=== PATIENT | female | born 1980 | race Caucasian/White ===

== ENCOUNTER 2016-04-11 08:25 | Inpatient (IN) | payer BC ==
[2016-04-11] MEDS ORDERED: Dinoprostone* 10 MG VAG.SUPP VAGINAL ONE (09:40)
[2016-04-11 10:53] LABS: Hematocrit 36 % (35-47); Hemoglobin 11.7 g/dl (12.0-16.0); Mean Corpuscular HGB Conc 32 g/dl (31-36); Mean Corpuscular Hemoglobin 28 pg (27-31); Mean Corpuscular Volume 85 fL (80-97); Mean Platelet Volume 9 um3 (7.4-10.4); Red Blood Count 4.25 10^6/ul (4.0-5.4); Red Cell Distribution Width 15 % (10.5-15); White Blood Count 9.7 10^3/ul (3.5-10.8)
[2016-04-11 11:40] LABS: Albumin 3.1 g/dL (3.2-5.2); BUN/Creatinine Ratio 16.9 (8-20); Calcium 8.6 mg/dL (8.6-10.3); EGFR African American 109.7 (>60); EGFR Non-African American 85.3 (>60); Globulin 2.8 g/dL (2-4); Potassium 4.2 mmol/L (3.5-5.0); Total Bilirubin 0.3 mg/dL (0.2-1.0); Total Protein 5.9 g/dL (6.4-8.9); Uric Acid 5.7 mg/dL (2.3-6.6)
--- NOTE | 2016-04-11 17:11 | PTEDU ---
Patient Name: JUAN JOSE BARRIOS DENIS JUAN JOSE selected video: Never Ever Shake a Baby to view on 04/11/2016 at 5:10:21 PM from [facility] [id number]
[2016-04-11] MEDS: Labetalol TAB* 100 MG PO SCH (21:01)
[2016-04-12] MEDS: Levothyroxine TAB* 50 MCG TAB PO SCH (07:06)
[2016-04-12] MEDS: Labetalol TAB* 100 MG PO SCH ×2 (08:41→21:02)
[2016-04-12] MEDS ORDERED: Misoprostol TAB* 100 MCG PO SCH ×2 (09:00→13:00)
[2016-04-12] MEDS ORDERED: Misoprostol TAB* 100 MCG PO ONE (17:10)
[2016-04-12] MEDS ORDERED: Nalbuphine* 20 MG/ML 1 ML VIAL IV ONE (21:00)
[2016-04-12] MEDS ORDERED: Promethazine INJ(RESTRICTED)* 25 MG/ML 1 ML VIAL IV ONE (21:00)
[2016-04-12] MEDS: ValACYclovir (*) 500 MG TAB PO SCH (21:02)
[2016-04-13] MEDS: Levothyroxine TAB* 50 MCG TAB PO SCH (08:17)
[2016-04-13] MEDS: Labetalol TAB* 100 MG PO SCH ×2 (08:17→21:26)
[2016-04-13] MEDS ORDERED: Misoprostol TAB* 100 MCG PO ONE ×3 (09:18→18:00)
[2016-04-13] MEDS ORDERED: Misoprostol TAB* 100 MCG ONE (09:33)
[2016-04-13] MEDS: ValACYclovir (*) 500 MG TAB PO SCH (21:26)
[2016-04-13] MEDS ORDERED: Nalbuphine* 20 MG/ML 1 ML VIAL IV PRN (21:39)
[2016-04-13] MEDS ORDERED: Promethazine INJ(RESTRICTED)* 25 MG/ML 1 ML VIAL IV PRN (21:41)
[2016-04-14] MEDS: Levothyroxine TAB* 50 MCG TAB PO SCH (07:09)
[2016-04-14] MEDS ORDERED: Oxytocin in LR* 20 UNITS/1,000 ML BAG IVPB SCH (09:00)
[2016-04-14] MEDS ORDERED: Penicillin G Potassium IV* 5,000,000 UNITS in NS 0.9% 100 ML* 100 ML IVPB ONE (09:08)
[2016-04-14] MEDS: Labetalol TAB* 100 MG PO SCH ×2 (10:17→21:29)
[2016-04-14] MEDS ORDERED: Penicillin G Potassium IV* 2,500,000 UNITS in NS 0.9% 100 ML* 100 ML IVPB SCH (13:30)
[2016-04-14] MEDS: Penicillin G Potassium IV* 2,500,000 UNITS in NS 0.9% 100 ML* 100 ML IVPB SCH ×2 (19:47→21:28)
[2016-04-14] MEDS: ValACYclovir (*) 500 MG TAB PO SCH (21:29)
[2016-04-14] MEDS ORDERED: OBEPIDURAL* 250 ML ONE (21:40)
[2016-04-14] MEDS ORDERED: Sodium Citrate/Citric Acid* 15 ML UDC PO PRN (22:54)
[2016-04-14] MEDS ORDERED: EPHEDrine (Pressors)* 50 MG/ML VIAL IV PUSH PRN ×2 (22:54)
[2016-04-14] MEDS ORDERED: Famotidine TAB* 20 MG PO PRN (22:54)
[2016-04-14] MEDS ORDERED: Phenylephrine IV* 40 MCG/ML 10 ML SYRINGE IV PUSH PRN ×2 (22:54)
[2016-04-14] MEDS ORDERED: OBEPIDURAL* 250 ML EPIDURAL SCH (23:00)
[2016-04-15] MEDS: Penicillin G Potassium IV* 2,500,000 UNITS in NS 0.9% 100 ML* 100 ML IVPB SCH (01:29)
[2016-04-15] MEDS ORDERED: Dibucaine 1% 28.35 GM TUBE PR PRN (04:40)
[2016-04-15] MEDS ORDERED: Witch Hazel PAD* JAR TOPICAL PRN (04:40)
[2016-04-15] MEDS ORDERED: Glycerin ADULT SUPP PR PRN (04:40)
[2016-04-15] MEDS ORDERED: oxyCODONE/Acetamin 5/325 MG* TAB PO PRN (04:40)
[2016-04-15] MEDS ORDERED: Acetaminophen TAB* 325 MG PO PRN (04:40)
[2016-04-15] MEDS ORDERED: Oxytocin in LR* 20 UNITS/1,000 ML BAG IVPB SCH (05:00)
[2016-04-15] MEDS: Ibuprofen TAB* 600 MG PO PRN ×3 (08:04→21:19)
[2016-04-15] MEDS: Docusate CAP* 100 MG PO SCH ×3 (08:04→21:19)
[2016-04-15] MEDS: Labetalol TAB* 100 MG PO SCH ×2 (08:04→21:19)
[2016-04-15] MEDS: Levothyroxine TAB* 50 MCG TAB PO SCH (08:06)
[2016-04-16] MEDS: Ibuprofen TAB* 600 MG PO PRN ×3 (04:30→22:21)
[2016-04-16] MEDS: Levothyroxine TAB* 50 MCG TAB PO SCH (08:07)
[2016-04-16 08:45] LABS: Hematocrit 32 % (35-47); Hemoglobin 10.3 g/dl (12.0-16.0); Mean Corpuscular HGB Conc 33 g/dl (31-36); Mean Corpuscular Hemoglobin 28 pg (27-31); Mean Corpuscular Volume 86 fL (80-97); Mean Platelet Volume 8 um3 (7.4-10.4); Red Blood Count 3.68 10^6/ul (4.0-5.4); Red Cell Distribution Width 16 % (10.5-15); White Blood Count 15.3 10^3/ul (3.5-10.8)
[2016-04-16] MEDS ORDERED: Ferrous Gluconate TAB* 324 MG TAB PO SCH (09:00)
[2016-04-16] MEDS: Docusate CAP* 100 MG PO SCH ×3 (09:06→22:21)
[2016-04-16] MEDS: Labetalol TAB* 100 MG PO SCH ×2 (09:06→22:20)
[2016-04-16] MEDS ORDERED: Dibucaine 1% 28.35 GM TUBE ONE (16:35)
[2016-04-16] MEDS: Penicillin G Potassium IV* 2,500,000 UNITS in NS 0.9% 100 ML* 100 ML IVPB SCH ×2 (19:27→19:28)
[2016-04-16] MEDS: Simethicone TAB* 80 MG TAB.CHEW PO SCH (19:28)
[2016-04-17 08:05] VITALS: BP 126/84
[2016-04-17] MEDS: Docusate CAP* 100 MG PO SCH (08:14)
[2016-04-17] MEDS: Labetalol TAB* 100 MG PO SCH (08:14)
[2016-04-17] MEDS: Levothyroxine TAB* 50 MCG TAB PO SCH (08:14)
== END 2016-04-17 13:30 | disposition home or self-care (01) | DRG 560 ==
LOC: MCHOBOUT 08:25 → MCHOB 09:40
PROVIDERS: ADMIT Midwife; ATTEND Midwife
PROC: 10E0XZZ Delivery of Products of Conception, External Approach (ICD-10-PCS; principal; 2016-04-15)
PROC: 0HQ9XZZ Repair Perineum Skin, External Approach (ICD-10-PCS; 2016-04-15)
PROC: 3E033VJ Introduction of Other Hormone into Peripheral Vein, Percutaneous Approach (ICD-10-PCS; 2016-04-15)
DX: O10.92 Unspecified pre-existing hypertension complicating childbirth (principal); E03.9 Hypothyroidism, unspecified; O99.824 Streptococcus B carrier state complicating childbirth; O70.0 First degree perineal laceration during delivery; O99.284 Endocrine, nutritional and metabolic diseases complicating childbirth; Z3A.39 39 weeks gestation of pregnancy; Z37.0 Single live birth
CPT/HCPCS: 36415; 59200; 76815; 80053; 84550; 85025; 86850; 86900; 86901; 88307; A9270-GY; J2300; J2540; J2550; S0191

== ENCOUNTER 2019-05-15 18:22 | Inpatient (IN) | payer BC ==
[2019-05-15] MEDS ORDERED: Buffered Lidocaine 1% SYRIN* 1 ML/SYRINGE INTRADERM ONE (19:26)
[2019-05-15] MEDS ORDERED: Lactated Ringers 1000 ML Bag* 1,000 ML IV ONE (19:26)
[2019-05-15] MEDS ORDERED: Dinoprostone* 10 MG VAG.SUPP VAGINAL ONE (19:26)
[2019-05-15] MEDS ORDERED: Lactated Ringers 1000 ML Bag* 1,000 ML IV SCH (20:00)
[2019-05-15 20:43] LABS: Urine Benzodiazepine Screen None Detected (None Detect); Urine Opiates Screen None Detected (None Detect)
[2019-05-15] MEDS ORDERED: Penicillin G Potassium IV* 5,000,000 UNITS in NS 0.9% 100 ML* 100 ML IVPB ONE (21:38)
[2019-05-15] MEDS ORDERED: diPHENhydraMINE PO* 50 MG PO ONE (21:40)
--- NOTE | 2019-05-15 21:46 | HP ---
General Information - Reason for Visit Induction due to CHTN on medication - General Information Maternal Age: 39 Grav: 7 Para: 1 SAB: 5 IEA: 0 Estimated Due Date: 05/31/19 Determined By: LMP Gestational Age in Weeks/Days: 37.5 Maternal Blood Type and Rh: O Positive - Results this Serology/RPR Result: Non-Reactive Rubella Result: Immune HBsAg Result: Negative HIV Result: Negative GBS Culture Result: Positive Past Medical History Delivery History: Hx Uncomplicated Vaginal Delivery Pertinent Past Medical History: See Records - HTN, Antiphopholipid Ab , hormonal migraines Pertinent Past Surgical History: See Records Pertinent Family History: Non-Contributory - Antepartal Records Antepartal Records: Reviewed, Complicated by: - CHTN on labetalol - mildly elevated BPs, APA - on lovenox/heparin Review of Systems Constitutional: Comfortable CV Complaint: No Respiratory: Shortness of Breath: No Gastrointestinal: No Nausea/Vomiting, Normal Bowel Movement Genitourinary: No Dysuria, No Bleeding, No Leaking Fluid Musculoskeletal: No Complaint, No Epigastric Pain Neurological: No Headache, No Visual Changes Movement: Normal Exam Allergies/Adverse Reactions: Allergies No Known Allergies Allergy (Verified 04/11/16 09:04) Lab Values - Entire Visit: Laboratory Tests 05/15/19 20:15 Urine Opiates Screen None detected Ur Barbiturates Screen None detected Ur Phencyclidine Scrn None detected Ur Amphetamines Screen None detected U Benzodiazepines Scrn None detected Urine Cocaine Screen None detected U Cannabinoids Screen None detected - Measurements Height: 5 ft 2 in Weight: 180 lb Weight in lbs: [phone] Body Mass Index (BMI): 32.9 Pre- Weight: 140 lb Weight Gained This : 40 lbs and 0 ozs - Exam Breast: Breast Exam Deferred CVA: No CVA Tenderness Extremities: No Edema Heart: Normal Rhythm/Heart Sounds HEENT: No Significant Findings - Abdominal Exam Abdomen Exam: Non-Tender - Ultrasound/Biophysical Profile Ultrasound Status: Not Done Targeted Exam Findings Cervical Exam: 1cm Effacement: <50% Station: -2 Presenting Part: Vertex Membrane Status: Intact EFM Findings - External Monitor Findings Baseline Heart Rate: 130 External Monitor Findings: Accelerations Present, No Pattern of Variable or Late Decelerations, Variability Moderate, Baseline Stable Contractions: Irregular Assessment/Plan - Assessment @37.5wks with CHTN on labetalol, APA on heparin (last done this am) here for Induction. GBS+ - Obstetrical Risk Factors Obstetrical Risk Factors: GBS Positive, Chronic Hypertension - Plan Plan: Induction, Cervical Ripening - cervidil placed at 20:00, Antibiotic Prophylaxis - when active
[2019-05-15] MEDS: Labetalol TAB* 100 MG PO SCH (21:54)
[2019-05-15] MEDS: ValACYclovir (*) 500 MG TAB PO SCH (21:54)
--- NOTE | 2019-05-16 09:03 | PN ---
Progress Note - Progress Note Date of Service: 05/16/19 Note: 39 y/o at 37w6d here for IOL secondary to CHTN on medications. 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 Had cervidil overnight. Cervidil taken out at 9am, cervix now 2cm/50%/-3, soft, anterior. Pt estelita and beginning to feel contractions more. FHT has been reactive with moderate variability, Cateogory I. Will start Pitocin if safe and indicated once monitored for a period to see how close contractions are now that cervidil is out. RH+ Rubella Equivocal - offer MMR PP APA Syndrome - will re-start Lovenox in post period CHTN - BP's mild range, pt asymptomatic, continue Labetalol BID GBS Positive - will start PCN once pt appears to be in active labor or ROM Naveed Gonzalez, DO GAXIOLA
[2019-05-16] MEDS: Labetalol TAB* 100 MG PO SCH ×2 (09:55→20:57)
[2019-05-16] MEDS: Oxytocin in LR* 20 UNITS/1,000 ML BAG IVPB SCH (11:07)
[2019-05-16 11:24] LABS: ABS Basophils 0.1 10^3/ul (0-0.2); ABS Eosinophils 0.1 10^3/ul (0-0.6); ABS Lymphocytes 2.2 10^3/ul (1.0-4.8); ABS Monocytes 0.6 10^3/ul (0-0.8); ABS Neutrophils 8.1 10^3/ul (1.5-7.7); Eosinophil % 0.7 %; Hematocrit 38 % (35-47); Hemoglobin 12.9 g/dL (12.0-16.0); Lymphocyte % 19.8 %; Mean Corpuscular HGB Conc 34 g/dL (31-36); Mean Corpuscular Hemoglobin 27 pg (27-31); Mean Corpuscular Volume 81 fL (80-97); Mean Platelet Volume 8.6 fL (7.4-10.4); Nucleated Red Blood Cells % 0.2; Platelet Count 229 10^3/uL (150-450); Red Blood Count 4.72 10^6 /uL (3.70-4.87); Red Cell Distribution Width 16 % (10-15)
[2019-05-16 11:45] LABS: Activated Partial Thrombo Time 32.9 seconds (26.0-38.0); Fibrinogen 343.3 mg/dL (110.8-404.3); INR 0.97 (0.82-1.09)
[2019-05-16 11:46] LABS: Schistocytes ABSENT
[2019-05-16 11:49] LABS: Platelet Count 224 10^3/ul (150-450)
[2019-05-16 11:56] LABS: Albumin 3.4 g/dL (3.2-5.2); Albumin/Globulin Ratio 1.4 (1-3); BUN/Creatinine Ratio 14.3 (8-20); Calcium 9.2 mg/dL (8.6-10.3); EGFR African American 70.6 (>60); EGFR Non-African American 58.3 (>60); Globulin 2.5 g/dL (2-4); Potassium 4.5 mmol/L (3.5-5.0); Total Bilirubin 0.3 mg/dL (0.2-1.0); Total Protein 5.9 g/dL (6.4-8.9); Uric Acid 6.9 mg/dL (2.3-6.6)
--- NOTE | 2019-05-16 13:17 | PN ---
Progress Note - Progress Note Date of Service: 05/16/19 Note: 39 y/o at 37w6d here for IOL secondary to CHTN on medications. 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 IV inserted and PreE labs collected. Pitocin started. On review of PreE Labs: Cr noted to be 1.05, AST/ALT 234/292, Uric Acid 6.9. H/ H 12/38 and platelets 239. Coag Labs WNL. Pt has remained asymptomatic; she denies FLOWERS, changes in vision, RUQ pain, n/v, cp, sob. Reflexes are normoreflexive 2+, no clonus, no swelling or edema on exam. Pt's BP's have remained in mild range with no severe range BP's. FHT is baseline 130/moderate/+accels/no decels toco shows contractions q 3-5 minutes Her presentation is now consistent with an Atypical SI PreEclampsia - will continue to monitor BP's closely and for signs/symptoms of worsening PreEclampsia - will give Magnesium Sulfate for seizure ppx if any signs/sx of worsening PreE or severe range BP's. Will repeat Lab evaluation with CBC and CMP q 12 hours. - Continue Pitocin, AROM when safe - Give PCN now for GBS ppx DO KHALIDA Torrez
--- NOTE | 2019-05-16 15:24 | PN ---
Progress Note - Progress Note Date of Service: 05/16/19 Note: Pt doing well. No complaints. Denies FLOWERS, changes in vision, RUQ pain, n/v, cp, sob. BP's mild range, no severe range BP's. Refelexes normoreflexive 2+, no clonus. Non-labored respirations. No edema. Voiding spontaneously with appropriate UOP FHT is 130/moderate variability/+accels/no decels [place]: ~ q 3 minute contractions Pitocin is at 16mU S/P PCN x 1 at ~ 1300, repeat at 4 hour interval Last cervix exam was 3cm/50/-3 Will re-examine after 2nd dose of PCN and AROM if safe Continuous EFM, continue close BP monitoring Anticipate vaginal delivery Naveed Gonzalez, DO GAXIOLA
[2019-05-16] MEDS: Penicillin G Potassium IV* 3,000,000 UNITS in NS 0.9% 100 ML* 100 ML IVPB SCH ×3 (17:03→21:07)
--- NOTE | 2019-05-16 17:42 | PN ---
Progress Note - Progress Note Date of Service: 05/16/19 Note: Pt doing well, no complaints. Continues to contract regularly. Remains asymptomatic. FHT is reactive and reassuring with moderate variability, no pattern of recurrent late or variable decels BP's mild range, no severe range BP's. AROM'd with clear fluid at ~1720, fetus tolerated well. Pit at 16mU, continue. Continuous monitoring. Continue to monitor BP's and symptoms. Will repeat PreE labs at 11pm. Continue Penicillin for GBS ppx, now s/p 2 doses. Anticipate vaginal delivery. Naveed Gonzalez, DO GAXIOLA
[2019-05-16] MEDS: ValACYclovir (*) 500 MG TAB PO SCH (20:56)
[2019-05-16 23:13] LABS: Hematocrit 37 % (35-47); Hemoglobin 12.2 g/dL (12.0-16.0); Mean Corpuscular HGB Conc 33 g/dL (31-36); Mean Corpuscular Hemoglobin 27 pg (27-31); Mean Corpuscular Volume 82 fL (80-97); Mean Platelet Volume 8.5 fL (7.4-10.4); Platelet Count 206 10^3/uL (150-450); Red Blood Count 4.53 10^6 /uL (3.70-4.87); Red Cell Distribution Width 16 % (10-15); White Blood Count 13.5 10^3/uL (3.5-10.8)
--- NOTE | 2019-05-16 23:13 | PN ---
Progress Note - Progress Note Date of Service: 05/16/19 Note: Pitocin stopped x 2 hours to allow pitocin receptors to re-set at pt had been at 16mU x several hours. Pitocin re-started and patient now estelita regularly and becoming more uncomfortable, continue to titrate pitocin per protocol. FHT is reactive and reassuring. Pt remains asymptomatic. BP's remain mild range. Repeat CBC/CMP being collected now. Continue Penicillin for GBS ppx. Anticipate vaginal delivery. Naveed Gonzalez, DO GAXIOLA
[2019-05-16 23:32] LABS: Albumin 3.1 g/dL (3.2-5.2); BUN/Creatinine Ratio 14.7 (8-20); EGFR African American 79.2 (>60); EGFR Non-African American 65.5 (>60); Potassium 4.3 mmol/L (3.5-5.0); Total Bilirubin 0.4 mg/dL (0.2-1.0); Total Protein 6.1 g/dL (6.4-8.9)
[2019-05-17] MEDS: Penicillin G Potassium IV* 3,000,000 UNITS in NS 0.9% 100 ML* 100 ML IVPB SCH ×5 (02:26→19:39)
[2019-05-17] MEDS ORDERED: OBEPIDURAL* 250 ML EPIDURAL ONE (03:18)
[2019-05-17] MEDS ORDERED: Bupivacaine 0.25% SDV PF* 10 ML VIAL INJ ONE (03:30)
--- NOTE | 2019-05-17 03:31 | PN ---
Progress Note - Progress Note Date of Service: 05/17/19 Note: Pt becoming more uncomfortable with contractions. Requests Epidural. BP's have remained stable in mild range. Pt remains asymptomatic. Repeat CBC/CMP, Cr slightly improved, LFT's slightly increased, Plt's stable. FHT is reactive and reassuring with moderate variability and no pattern of late or variable decel. Pitocin is at 18mU Anesthesia notified Will re-examined as clinically indicated DO KHALIDA Torrez
[2019-05-17] MEDS: Phenylephrine 40 MCG/ML SYRINGE IV PUSH PRN ×2 (03:55→04:07)
[2019-05-17] MEDS ORDERED: Sodium Citrate/Citric Acid* 15 ML UDC PO PRN (03:57)
[2019-05-17] MEDS ORDERED: Famotidine TAB* 20 MG PO PRN (03:57)
[2019-05-17] MEDS ORDERED: Lactated Ringers 1000 ML Bag* 1,000 ML IV ONE (03:57)
[2019-05-17] MEDS ORDERED: OBEPIDURAL* 250 ML EPIDURAL SCH (04:00)
[2019-05-17] MEDS ORDERED: EPHEDrine (Pressors)* 50 MG/ML VIAL ONE (04:13)
[2019-05-17] MEDS: EPHEDrine (Pressors)* 50 MG/ML VIAL IV PUSH PRN ×3 (04:14→04:29)
--- NOTE | 2019-05-17 04:43 | PN ---
Progress Note - Progress Note Date of Service: 05/17/19 Note: FHT exhibited prolonged decelerations 2-3 minutes in duration x 2 with nadirs to ~80bpm from baseline FH of 130's after becoming hypotensive immediately after epidural placement. Pitocin was stopped, maternal O2 applied, IVF bolus open, phenylephrine x 2, ephedra x 2. BP's now recovered and FHT has returned to baseline of 135bpm with moderate variability and accelerations. Cervix is now 5-6cm/60%/-3 Will re-start Pitocin shortly when deemed safe. Continue to monitor continuously and monitor maternal BP's closely. Re-examine as clinically indicated DO KHALIDA Torrez
--- NOTE | 2019-05-17 09:23 | PN ---
Progress Note - Progress Note Date of Service: 05/17/19 Note: Pt feeling more pressure with contractions. FHT is reactive with moderate variability baseline 125, + accelerations, intermittent early decels. Pit is at 14, pt is estelita irregularly. Cervix re-examined and is now 6cm/60%/-2, head is more well applied than on previous exams representing significant descent, suspect pt is just now entering into active labor. Pt remains asymptomatic. BP's are in the mild range. Will repeat CBC and CMP this AM. Continue to titrate Pitocin. Contine PCN for GBS ppx. Will sign out patient to oncoming physician at this time. Naveed Gonzalez, OBGYN
[2019-05-17 11:23] LABS: ABS Eosinophils 0.1 10^3/ul (0-0.6); ABS Lymphocytes 2.4 10^3/ul (1.0-4.8); ABS Monocytes 0.6 10^3/ul (0-0.8); ABS Neutrophils 10.9 10^3/ul (1.5-7.7); Eosinophil % 0.5 %; Hematocrit 35 % (35-47); Hemoglobin 11.5 g/dL (12.0-16.0); Mean Corpuscular HGB Conc 33 g/dL (31-36); Mean Corpuscular Hemoglobin 27 pg (27-31); Mean Corpuscular Volume 82 fL (80-97); Mean Platelet Volume 8.2 fL (7.4-10.4); Platelet Count 196 10^3/uL (150-450); Red Blood Count 4.32 10^6 /uL (3.70-4.87); Red Cell Distribution Width 16 % (10-15)
[2019-05-17 11:42] LABS: EGFR African American 80.2 (>60); EGFR Non-African American 66.3 (>60)
[2019-05-17] MEDS: Labetalol TAB* 100 MG PO SCH ×2 (11:58→21:12)
[2019-05-17] MEDS ORDERED: Magnesium Sulf 4 GM/100 ML IV* 4,000 MG/100 ML BAG IVPB ONE (17:07)
[2019-05-17] MEDS: Oxytocin in LR* 20 UNITS/1,000 ML BAG IVPB SCH ×3 (17:37→23:29)
[2019-05-17] MEDS: Lactated Ringers 1000 ML Bag* 1,000 ML IV SCH ×2 (17:37→21:13)
[2019-05-17] MEDS ORDERED: Magnesium Sulfate OB PREMIX* 40 GM/1,000 ML BAG IVPB SCH ×2 (18:00→20:00)
--- NOTE | 2019-05-17 18:49 | PN ---
Progress Note - Progress Note Date of Service: 05/17/19 Note: Variable decels noted with contractions and pt feeling pressure/uncomfortable despite CEI infusing Anesthesia notified for bolus. Cervix re-examined and is now 9cm/100%/0 Anticipate progression to
[2019-05-17] MEDS ORDERED: Dibucaine 1% 28.35 GM TUBE PR PRN (19:14)
[2019-05-17] MEDS ORDERED: Witch Hazel PAD* JAR TOPICAL PRN (19:14)
[2019-05-17] MEDS ORDERED: Acetaminophen TAB* 325 MG PO PRN (19:14)
[2019-05-17] MEDS ORDERED: Glycerin ADULT SUPP PR PRN (19:14)
[2019-05-17] MEDS ORDERED: Lactated Ringers 1000 ML Bag* 1,000 ML IV SCH (20:00)
[2019-05-17] MEDS ORDERED: Simethicone TAB* 80 MG TAB.CHEW PO SCH (21:00)
[2019-05-17] MEDS: ValACYclovir (*) 500 MG TAB PO SCH (21:12)
[2019-05-17] MEDS: Ibuprofen TAB* 600 MG PO SCH (21:12)
[2019-05-17] MEDS: Docusate CAP* 100 MG PO SCH (21:12)
--- NOTE | 2019-05-18 00:12 | PROCNOTE ---
[facility]: Delivery Note - Delivery A Date of : 05/17/19 Time of : 19:58 [place] Sex: Male Weight at : 5 lb 15 oz Score 1 Minute: 9 Score 5 Minutes: 9 Gestational Age in Weeks and Days at Delivery: 38 Weeks and 0 Days Delivery Method: Spontaneous Vaginal Labor: Induced Did Patient attempt ?: N/A, No Previous Amniotic Fluid: Clear Estimated Blood Loss: 300 Anesthesia/Analgesia: CEI for Labor Delivered By: Tata Cole - Nursery Level of Nursery: Regular/Bedside - Perineum Perineal Injury: 1st Degree Perineal Injury Comment: 2.O VICRYL INTERUPTED x2 stiches Perineal Repair: By Delivering Practioner - Events Delivery Events of Note: Pitocin During Labor, Supplemental O2 to Mother - severe pre eclampsia, Full Course of Antibiotics, ROM > 24 Hours, IUPC Use, Mag Sulfate Given Delivery Events of Note Comment: severe preeclampsai with LFT abnormal - Risk for Falls Delivered OB Patient- Risk for Falls: Magnesium Sulfate in Use Fall Risk: Patient is at High Risk for Falls
[2019-05-18 05:45] LABS: ABS Eosinophils 0.1 10^3/ul (0-0.6); ABS Lymphocytes 2.6 10^3/ul (1.0-4.8); ABS Monocytes 0.7 10^3/ul (0-0.8); ABS Neutrophils 12.1 10^3/ul (1.5-7.7); Eosinophil % 0.5 %; Hematocrit 30 % (35-47); Hemoglobin 10.2 g/dL (12.0-16.0); Lymphocyte % 16.5 %; Mean Corpuscular HGB Conc 33 g/dL (31-36); Mean Corpuscular Hemoglobin 28 pg (27-31); Mean Corpuscular Volume 83 fL (80-97); Mean Platelet Volume 8.5 fL (7.4-10.4); Platelet Count 187 10^3/uL (150-450); Red Blood Count 3.69 10^6 /uL (3.70-4.87); Red Cell Distribution Width 16 % (10-15); White Blood Count 15.5 10^3/uL (3.5-10.8)
[2019-05-18] MEDS: Docusate CAP* 100 MG PO SCH ×3 (07:35→21:25)
[2019-05-18] MEDS: Labetalol TAB* 100 MG PO SCH ×2 (07:35→21:25)
[2019-05-18] MEDS: Ibuprofen TAB* 600 MG PO SCH ×4 (07:35→20:08)
[2019-05-18] MEDS: Penicillin G Potassium IV* 3,000,000 UNITS in NS 0.9% 100 ML* 100 ML IVPB SCH ×3 (08:19→08:20)
[2019-05-18] MEDS: Enoxaparin(*) 40 MG/0.4 ML SYR SUBCUT SCH (08:31)
[2019-05-18] MEDS ORDERED: Measles, Mumps,Rubella VACC* 0.5 ML/VIAL SUBCUT ONE (09:00)
[2019-05-18] MEDS ORDERED: Ferrous Gluconate TAB* 324 MG TAB PO SCH (09:00)
[2019-05-18] MEDS ORDERED: Enoxaparin(*) 60 MG/0.6 ML SYR SUBCUT SCH (09:00)
[2019-05-18] MEDS: Aspirin 81 mg CHEW TAB* 81 MG TAB.CHEW PO SCH (09:38)
[2019-05-19 07:04] LABS: ALT 116 U/L (7-52); AST 51 U/L (13-39)
[2019-05-19] MEDS: Docusate CAP* 100 MG PO SCH (07:41)
[2019-05-19] MEDS: Ibuprofen TAB* 600 MG PO SCH (07:42)
[2019-05-19] MEDS: Aspirin 81 mg CHEW TAB* 81 MG TAB.CHEW PO SCH (07:42)
[2019-05-19] MEDS: Labetalol TAB* 100 MG PO SCH (07:42)
[2019-05-19] MEDS: Enoxaparin(*) 40 MG/0.4 ML SYR SUBCUT SCH (07:42)
[2019-05-19 07:57] VITALS: BP 134/89
== END 2019-05-19 12:55 | disposition home or self-care (01) | DRG 560 ==
LOC: MCHOBOUT 18:22 → MCHOB 19:28
PROVIDERS: ADMIT Obstetrics & Gynecology; ATTEND Obstetrics & Gynecology
PROC: 10E0XZZ Delivery of Products of Conception, External Approach (ICD-10-PCS; principal; 2019-05-17)
PROC: 3E033VJ Introduction of Other Hormone into Peripheral Vein, Percutaneous Approach (ICD-10-PCS; 2019-05-17)
PROC: 10907ZC Drainage of Amniotic Fluid, Therapeutic from Products of Conception, Via Natural or Artificial Opening (ICD-10-PCS; 2019-05-17)
PROC: 0HQ9XZZ Repair Perineum Skin, External Approach (ICD-10-PCS; 2019-05-17)
DX: O11.4 Pre-existing hypertension with pre-eclampsia, complicating childbirth (principal); Z37.0 Single live birth; O99.824 Streptococcus B carrier state complicating childbirth; O70.0 First degree perineal laceration during delivery; Z3A.38 38 weeks gestation of pregnancy
CPT/HCPCS: 36415; 59200; 80053; 80307; 82565; 84450; 84460; 84550; 85025; 85027; 85049; 85362; 85384; 85610; 85730; 86850; 86900; 86901; A9270-GY; G0480; J1650; J2540; J3475; J3490